=== PATIENT | male | born 1995 | race Caucasian/White ===

== ENCOUNTER 2017-02-25 13:53 | Emergency (ER) | payer OTHER, SELFPAY ==
--- NOTE | 2017-02-25 14:12 | ED.PDOC ---
History of Present Illness - General Chief Complaint: Respiratory Problem Stated Complaint: nasal congestion/achy throat Time Seen by Provider: 02/25/17 14:09 Source: patient Exam Limitations: no limitations - History of Present Illness Initial Comments: Casa Barnes 21 y/o male stated that he had been having nasal congestion for one week and worse the last 2 days with sharp headache and achy throat Timing/Duration: other - worse for the last 2 days Severity: moderate EENT Location: nose Prearrival Treatment: over the counter meds Improving Factors: nothing Worsening Factors: nothing Associated Symptoms: cough - non productive Allergies/Adverse Reactions: Allergies NO KNOWN ALLERGY Allergy (Verified 02/25/17 14:14) Home Medications: Ambulatory Orders Cefuroxime Axetil [Ceftin] 500 mg PO BID #14 tab 02/25/17 Phenylephrine W/ Dm-GG [Deconex Dmx 10-17.5-385 mg] 1 tab PO BID #20 tab predniSONE 10 mg PO BID #14 tab 02/25/17 Review of Systems - Review of Systems Constitutional: States: no symptoms reported EENTM: States: see HPI Respiratory: States: see HPI Cardiology: States: no symptoms reported Gastrointestinal/Abdominal: States: no symptoms reported Genitourinary: States: no symptoms reported Past Medical History (General) - Patient Medical History Hx Asthma: No Hx Hypertension: No Hx Thyroid Disease: No Surgical History: other - orif thumb fx right Family Medical History - Family History Father Family History: No Known Physical Exam - Physical Exam General Appearance: Alert, No apparent distress, Well Developed, Well Groomed, Well Nourished Eye Exam: bilateral normal Ear Exam: bilateral ear: auricle normal Nasal Exam: sinus tenderness - left w/ nasal congestion Throat Exam: pharynx normal Neck: supple, trachea midline Cardiovascular/Respiratory: regular rate, rhythm, no M/R/G, normal breath sounds , no respiratory distress Abdominal Exam: non-tender, no organomegaly Neurologic: alert, oriented x 3 Skin Exam: normal color, warm/dry Progress - EKG/XRAY/CT XRAY: chest - no acute abnormalities Departure - Departure Clinical Impression: Sinusitis Qualifiers: Sinusitis location: unspecified location Chronicity: acute Recurrence: non- recurrent Qualified Code(s): J01.90 - Acute sinusitis, unspecified Headache Qualifiers: Headache type: unspecified Headache chronicity pattern: unspecified pattern Intractability: not intractable Qualified Code(s): R51 - Headache Time of Disposition: 14:54 Disposition: Discharge to Home or Self Care Condition: Good Instructions: DI for Sinusitis Referrals: VENTURA CLIFFORD [Primary Care Provider] - 1-2 Weeks Prescriptions: Cefuroxime Axetil [Ceftin] 500 mg PO BID #14 tab Phenylephrine W/ Dm-GG [Deconex Dmx 10-17.5-385 mg] 1 tab PO BID #20 tab predniSONE 10 mg PO BID #14 tab Home Medications: Ambulatory Orders Cefuroxime Axetil [Ceftin] 500 mg PO BID #14 tab 02/25/17 Phenylephrine W/ Dm-GG [Deconex Dmx 10-17.5-385 mg] 1 tab PO BID #20 tab predniSONE 10 mg PO BID #14 tab 02/25/17 Additional Instructions: May use over the counter AFRIN SPRAY 2 sprays each nose am/pm for nasal congestion 3 days on 3 days off ;Aleve (over the counter) may take 2 tablets am/ pm for pain and headache
[2017-02-25 14:15] VITALS: TEMP 98.9
[2017-02-25] MEDS ORDERED: KETOROLAC TROMETHAMINE INJ 30 MG/ML VIAL IM ONE (14:17)
[2017-02-25] MEDS ORDERED: AMOXICILLIN 500 MG CAP PO ONE (14:17)
[2017-02-25] MEDS ORDERED: predniSONE 20 MG TAB PO ONE (14:17)
--- NOTE | 2017-02-25 14:37 | RAD ---
EXAM DESCRIPTION: Chest,2 Views CLINICAL HISTORY: cough COMPARISON: None available FINDINGS: The cardiomediastinal silhouette is unremarkable. There is no airspace consolidation or pleural effusion. The bronchovascular markings are within normal limits, and the lungs are not hyperinflated. There is no pneumothorax or acute fracture. IMPRESSION: Negative exam. Electronically signed by: Vivek Gramajo MD 02/25/2017 2:35 PM CDT Workstation: [id number]
[2017-02-25] MEDS ORDERED: LIDOCAINE VIS-MYLANTA 30 ML UD PO ONE (14:44)
[2017-02-25 15:25] VITALS: BP 121/75; O2SAT 98
== END 2017-02-25 15:15 | disposition home or self-care (01) ==
LOC: ER 13:53
DX: J01.90 Acute sinusitis, unspecified (principal); R51 Headache
CPT/HCPCS: 71020; J1885; J7512